=== PATIENT | female | born 1990 | race Asian ===

== ENCOUNTER 2016-08-22 14:31 | Emergency (ER) | payer OTHER ==
[~2016-08-22] VITALS: Ht 167.6 cm; Wt 73.4 kg
[2016-08-22 14:33] VITALS: BP 117/77
[2016-08-22] MEDS ORDERED: DEXAMETHASONE 4 MG TABLET PO ONE (15:00)
[2016-08-22] MEDS ORDERED: DEXAMETHASONE 4 MG TABLET ONE (15:24)
== END 2016-08-22 16:06 | disposition home or self-care (01) ==
LOC: ED 16:00
DX: J02.9 Acute pharyngitis, unspecified (principal); R05 Cough
CPT/HCPCS: 87081; 87880; 99284